=== PATIENT | female | born 1950 | race Caucasian/White ===

== ENCOUNTER → 2017-08-26 | Outpatient (CLI) | payer MEDICARE, BC | LOC: BICRAD 15:20 | PROVIDERS: ATTEND Internal Medicine | DX: M79.604 Pain in right leg (principal) ==

== ENCOUNTER 2018-06-01 12:48 | Outpatient (CLI) | payer MEDICARE, BC | END 2018-06-01 12:49 | disposition home or self-care (01) | LOC: BICMAMMO 12:48 | PROVIDERS: ATTEND Internal Medicine | DX: Z12.31 Encounter for screening mammogram for malignant neoplasm of breast (principal); Z80.3 Family history of malignant neoplasm of breast | CPT/HCPCS: 77063; 77067 ==

== ENCOUNTER 2019-06-16 13:09 | Outpatient (CLI) | payer MEDICARE, BC ==
--- NOTE | 2019-06-16 14:02 | BD ---
BONE DENSITOMETRY USING DEXA: Date: 06/16/19 HISTORY: Postmenopausal screening for osteoporosis. Asymptomatic menopausal state. FINDINGS: Lumbar Spine: BMD (g/cm2) L1 0.802 T-Score: -1.7 Z-Score: 0.1 L2 1.125 T-Score: 0.9 Z-Score: 2.9 L3 1.069 T-Score: -0.1 Z-Score: 2.0 L4 0.966 T-Score: -0.9 Z-Score: 1.3 L1-L4 0.996 T-Score: -0.5 Z-Score: 1.6 Femoral Neck: 0.721 T-Score: -1.2 Z-Score: 0.6 Total Femur: 0.975 T-Score: 0.3 Z-Score: 1.7 The 10 year fracture risk for a major osteoporotic fracture is 8.6% and for a hip fracture is 0.9%. IMPRESSION: Osteopenia. POS: OFF
--- NOTE | 2019-06-16 14:05 | ULT ---
Thyroid sonogram HISTORY: Thyroid nodule. FINDINGS: Right thyroid lobe measures up to 2.6 cm. Tiny superficial cyst at the midportion of the ri ght thyroid lobe. 0.6 cm greatest diameter. Isthmus is 0.1 cm. Left thyroid lobe measures up to 3.3 cm with a homogeneous echotexture. No masses. IMPRESSION: Small thyroid gland. Tiny right lobe cyst. No significant abnormalities are demonstrated.
--- NOTE | 2019-06-16 14:22 | MMO ---
Bilateral MAMMO Bilat Screen [facility]. CLINICAL HISTORY: Patient is 69 years old and is seen for screening. The patient has the following family history of breast cancer: mother, at age 60. The patient has no personal history of cancer. VIEWS: The views performed were: bilateral craniocaudal with tomosynthesis and bilateral mediolateral oblique with tomosynthesis. FILMS COMPARED: The present examination has been compared to prior imaging studies performed at [facility] on 02/22/2015, 03/03/2016, 03/04/2017 and 06/01/2018. This study has been interpreted with the assistance of computer-aided detection. MAMMOGRAM FINDINGS: There are scattered fibroglandular densities. Benign calcifications are noted bilaterally. There are no suspicious masses, suspicious calcifications, or new areas of architectural distortion. IMPRESSION: THERE IS NO MAMMOGRAPHIC EVIDENCE OF MALIGNANCY. A ROUTINE FOLLOW-UP MAMMOGRAM IN 1 YEAR IS RECOMMENDED. THE RESULTS OF THIS EXAM WERE SENT TO THE PATIENT. ACR BI-RADS Category 2 - Benign finding MAMMOGRAPHY NOTE: 1. A negative mammogram report should not delay a biopsy if a dominant of clinically suspicious mass is present. 2. Approximately 10% to 15% of breast cancers are not detected by mammography. 3. Adenosis and dense breasts may obscure an underlying neoplasm. Reported by: LISSETTE AVERY MD Electonically Signed: [id number]
== END 2019-06-16 13:10 | disposition home or self-care (01) ==
LOC: BICMAMMO 13:09
PROVIDERS: ATTEND Internal Medicine
DX: Z12.31 Encounter for screening mammogram for malignant neoplasm of breast (principal); M85.89 Other specified disorders of bone density and structure, multiple sites; E04.1 Nontoxic single thyroid nodule; E07.89 Other specified disorders of thyroid; Z80.3 Family history of malignant neoplasm of breast; Z78.0 Asymptomatic menopausal state
CPT/HCPCS: 76536; 77063; 77067; 77080

== ENCOUNTER 2019-09-19 10:30 | Outpatient (CLI) | payer MEDICARE, OTHER ==
--- NOTE | 2019-09-19 11:28 | ULT ---
Pelvic ultrasound: 09/19/2019 COMPARISON: None HISTORY: Pelvic lesion on prior CT. TECHNIQUE: Multiplanar grayscale sonographic imaging of the pelvis obtained with transabdominal and e ndovaginal imaging. The ovaries are assessed with color flow and spectral analysis FINDINGS: The uterus measures 7.0 x 4.1 x 2.7 cm, within endometrial thickness of approximately 6 mm, slightly thickened for a post-menopausal female. There is a heterogeneous hyperechoic lesion in the region of the uterine fundus on the right measurin g 8 x 7 x 5 mm, which may represent a uterine fibroid. Right ovary not visualized on this examination. There is no free fluid in the pelvis. Left adnexa demonstrates a 4.9 x 4.2 x 4.0 cm hypoechoic cystic lesion. There is difficult to appreci ate ovarian tissue adjacent to this. IMPRESSION: 1. Cystic lesion in the left adnexal region measuring up to 4.9 cm. In a patient of this age, recomme nd gynecology consultation given possibility of cystic ovarian neoplasm. 2. Mildly abnormal endometrial thickness, which may signify endometrial polyp disease, endometrial hy perplasia, or endometrial carcinoma.
== END 2019-09-19 10:31 | disposition home or self-care (01) ==
LOC: BICULT 10:30
PROVIDERS: ATTEND Internal Medicine
DX: R19.00 Intra-abdominal and pelvic swelling, mass and lump, unspecified site (principal); N83.8 Other noninflammatory disorders of ovary, fallopian tube and broad ligament; R93.89 Abnormal findings on diagnostic imaging of other specified body structures
CPT/HCPCS: 76856

== ENCOUNTER 2020-01-19 09:58 | Outpatient (CLI) | payer MEDICARE, OTHER ==
[2020-01-19] MEDS ORDERED: Magnevist 469MG/ML 20 ML VIAL ONE (10:13)
--- NOTE | 2020-01-19 16:45 | MRI ---
Magnetic resonance angiogram MRA head noncontrast: DATE: 01/19/2020 HISTORY: 69-year-old female with nonintractable headache TECHNIQUE: 3-D [id number] MRA obtained through [place] [facility] [place] [place] in multiple axial slabs. Source images and 3 -D MIP reconstructions evaluated. FINDINGS: Bilateral vertebral, basilar, posterior cerebral, carotid siphons, middle cerebral, and anterior cere bral, arteries, are visualized, with no evidence of acquired short segment high-grade stenosis or aneurysm larger than 3 mm. Bilateral PICA s and right posterior communicating artery are patent. The A1 segment of the right anterior cerebral artery is diminutive. Anterior communicating artery is patent. IMPRESSION: Negative
--- NOTE | 2020-01-19 16:53 | MRI ---
MRI BRAIN WITH AND WITHOUT CONTRAST: DATE: 01/19/2020 HISTORY: 69-year-old female with ICD-10: R 51 non intractable headache, severe daily headaches for several mon ths. COMPARISON: 04/29/2016 TECHNIQUE: Multiplanar, multisequence MRI of the brain performed pre- and post-IV injection of gadolinium based contrast agent. FINDINGS: In the left lateral frontal joya radiata, there is a 0.9 x 0.8 cm focal patch of hyperintense signa l on the FLAIR and T2-weighted sequences, representing an interval change compared to the prior MRI. There is faint mild enhancement involving a small central portion of this lesion. There is no as sociated restricted diffusion or recent or remote hemorrhage associated with this. There is no other significant intra-axial signal abnormality. Ventricles are normal in size and configuration. No evidence of dural venous sinus thrombosis. No mass effect, midline shift, or extra-axial fluid collection. IMPRESSION: An approximately 1 cm mildly partially enhancing lesion in the left cerebral deep white matter. Exact etiology is uncertain. Possibilities include low-grade primary neoplasm versus subacute white matter infarction. Recommend serial follow-up brain MRI's with and without contrast, beginning in 3-6 months.
== END 2020-01-19 09:59 | disposition home or self-care (01) ==
LOC: BICMRI 09:58
PROVIDERS: ATTEND Internal Medicine
DX: R51 Headache (principal); G93.9 Disorder of brain, unspecified
CPT/HCPCS: 70544; 70553; 82565; A9579

== ENCOUNTER 2020-04-01 13:35 | Outpatient (CLI) | payer MEDICARE ==
--- NOTE | 2020-04-01 15:49 | MRI ---
EXAM: MRI of the brain without and with contrast HISTORY: Left cerebral enhancing lesion COMPARISON: 01/19/2020 TECHNIQUE: Multiplanar multisequence MR images were obtained of the brain without and with IV contras t. FINDINGS: There is a stable solitary small area of high FLAIR signal with a central area of enhancement measuri ng 5 mm in size in the left frontal periventricular white matter. No restricted diffusion. No hydronephrosis. No extra-axial fluid collection or intracranial hemorrhage. The expected flow voids are present. Corpus callosum, pituitary, and craniocervical junction are within normal limits. The calvarium and overlying soft tissues are unremarkable. The paranasal sinuses and mastoid air cells are well aerated. IMPRESSION: Stable nonspecific region of enhancement in the left frontal white matter.
== END 2020-04-01 13:36 | disposition home or self-care (01) ==
LOC: SCSMRI 13:35
PROVIDERS: ATTEND Neurological Surgery
DX: D49.6 Neoplasm of unspecified behavior of brain (principal)
CPT/HCPCS: 70553; 82565

== ENCOUNTER 2020-11-27 12:08 | Outpatient (CLI) | payer MEDICARE ==
[2020-11-27] MEDS ORDERED: Magnevist 469MG/ML 20 ML VIAL ONE (14:10)
== END 2020-11-27 12:09 | disposition home or self-care (01) ==
LOC: MRI 12:08
PROVIDERS: ATTEND Nurse Practitioner Acute Care
DX: R51.9 Headache, unspecified (principal); R93.49 Abnormal radiologic findings on diagnostic imaging of other urinary organs
CPT/HCPCS: 70553; 82565; A9579

== ENCOUNTER 2021-09-30 10:04 | Outpatient (CLI) | payer MEDICARE | END 2021-09-30 10:05 | disposition home or self-care (01) | LOC: BICULT 10:04 | PROVIDERS: ATTEND Internal Medicine | DX: N39.0 Urinary tract infection, site not specified (principal); M54.50 Low back pain, unspecified; M47.816 Spondylosis without myelopathy or radiculopathy, lumbar region; M41.9 Scoliosis, unspecified | CPT/HCPCS: 72100; 76770 ==

== ENCOUNTER 2021-10-06 13:55 | Outpatient (CLI) | payer MEDICARE | END 2021-10-06 13:56 | disposition home or self-care (01) | LOC: MRI 13:55 | PROVIDERS: ATTEND Internal Medicine | DX: M51.36 Other intervertebral disc degeneration, lumbar region (principal); M47.816 Spondylosis without myelopathy or radiculopathy, lumbar region; M48.061 Spinal stenosis, lumbar region without neurogenic claudication; M41.86 Other forms of scoliosis, lumbar region | CPT/HCPCS: 72148 ==

== ENCOUNTER 2021-10-14 12:24 | Outpatient (CLI) | payer MEDICARE | END 2021-10-14 12:25 | disposition home or self-care (01) | LOC: BICRAD 12:24 | PROVIDERS: ATTEND Internal Medicine | DX: M47.22 Other spondylosis with radiculopathy, cervical region (principal) | CPT/HCPCS: 72040 ==

== ENCOUNTER 2021-10-21 12:50 | Outpatient (CLI) | payer MEDICARE | END 2021-10-21 12:51 | disposition home or self-care (01) | LOC: SCSMRI 12:50 | PROVIDERS: ATTEND Internal Medicine | DX: M50.122 Cervical disc disorder at C5-C6 level with radiculopathy (principal); M47.22 Other spondylosis with radiculopathy, cervical region | CPT/HCPCS: 72141 ==

== ENCOUNTER 2023-08-12 14:14 | Emergency (ER) | payer MEDICARE ==
[~2023-08-12 14:14] MED LIST: Iopamidol-370 76% 500 ML MDV (1 ML CHARGE) ONE
[2023-08-12 14:44] LABS: #Eosinphils 0.1 thou/uL (0.0-0.7); #Monocytes 0.7 thou/uL (0.11-0.59); #Neutrophils 4.3 thou/uL (1.40-6.50); %Basophils 0.6 % (0.0-1.0); %Eosinophils 1.1 % (0.0-10.0); %Lymphocytes 26.9 % (21.0-51.0); %Monocytes 9.7 % (0.0-10.0); %Neutrophils 61.4 % (42.0-75.0); Hematocrit 45.3 % (36.0-47.0); Hemoglobin 15.4 g/dL (12.0-16.0); Mean Corpuscular Hemoglobin 30.4 pg (27.0-31.0); Mean Corpuscular Volume 89.3 fl (78.0-98.0); Mean Platelet Volume 11.3 fL (7.4-10.4); Platelet Count 195 10x3/uL (130-400); RBC Distribution Width 12.6 % (11.5-14.5); Red Blood Cell (RBC) Count 5.07 mill/uL (4.20-5.40)
[2023-08-12 15:06] LABS: ALT (SGPT) 22 U/L (8-55); AST (SGOT) 25 U/L (5-34); Albumin 4.3 g/dL (3.4-4.8); Alkaline Phosphatase 123 U/L (40-110); Anion Gap 14 mmol/L (10-20); BUN (Urea Nitrogen) 14 mg/dL (9.8-20.1); Bilirubin, Total 0.6 mg/dL (0.2-1.2); Calc. Creatinine Clearance 0 mL/min (70-130); Calcium 10.5 mg/dL (7.8-10.44); Carbon Dioxide 24 mmol/L (23-31); Chloride 106 mmol/L (98-107); Estimated GFR 75; Globulin 3.2 g/dL (2.4-3.5); Glucose 104 mg/dL (83-110); Potassium 4.1 mmol/L (3.5-5.1); Protein, Total 7.5 g/dL (5.8-8.1); Sodium 140 mmol/L (136-145)
[2023-08-12 15:08] LABS: Troponin I 0.012 ng/mL (< 0.028)
== END 2023-08-12 16:56 | disposition home or self-care (01) ==
LOC: ERS 14:14
DX: R42 Dizziness and giddiness (principal); M79.605 Pain in left leg; E78.00 Pure hypercholesterolemia, unspecified; E78.5 Hyperlipidemia, unspecified; Z86.718 Personal history of other venous thrombosis and embolism; Z79.899 Other long term (current) drug therapy
CPT/HCPCS: 36415; 71275; 80053; 83880; 84484; 85025; 93970; Q9967